=== PATIENT | male | born 1995 | race Caucasian/White ===

== ENCOUNTER 2021-03-05 23:36 | Emergency (ER) | payer SELFPAY ==
[~2021-03-05] VITALS: Ht 170 cm; Wt 57.0 kg
[~2021-03-05 23:36] MED LIST: OMEP20CA18 PO
--- NOTE | 2021-03-06 00:34 | ED EENT ---
History of Present Illness General Chief Complaint: Ear Problems Stated Complaint: FLOOD,LEFT EAR PAIN,TOOTHACHE Nursing Triage Note: PT AMB TO ED BY POV WITH C/O LEFT EAR PAIN THAT RADIATES TO THE JAW THAT BEGAN YESTERDAY AND FLOOD. PT HAS TRIED PUTTING PEROXIDE IN HIS EAR AND IBUPROFEN TO HELP WITH THE PAIN. LAYING DOWN MAKES THE PAIN WORSE. Source: patient Exam Limitations: no limitations History of Present Illness Date Seen by Provider: Mar 06, 2021 Time Seen by Provider: 00:24 Initial Comments Patient is a 25-year-old male who presents to the emergency department today with a chief complaint of left sided dental pain both upper and lower my molars, left ear pain, mild headache. Patient states he has been taking an inxj-yos-vtlrfyt "pain reliever" last dose was about 3 hours prior to arrival. He denies any fevers or chills. No chest pain, cough, shortness of breath. He is not Covid vaccinated. He denies abdominal pain, nausea vomiting or diarrhea. No sick contacts. He is a smoker and is counseled on stopping. He states he tried a little Orajel on the teeth and that seems to help a little bit, the Tylenol does not really make anything much better. All other review of systems reviewed and negative except as stated. Timing/Duration: gradual Location: ear (L), mouth, dental Prearrival Treatment: over the counter meds Modifying Factors: Worse With Lying Down Associated Symptoms: nasal congestion/drainage, tooth pain Allergies and Home Medications Allergies Coded Allergies: No Known Drug Allergies (Unverified , 02/19/15) Patient Home Medication List Home Medication List Reviewed: Yes Omeprazole (Omeprazole) 20 Mg David., 20 MG PO BID Prescribed by: AYAD MARCUM on 02/20/15 0018 Review of Systems Review of Systems Constitutional: see HPI Eyes: No Symptoms Reported Ears: Pain (left ear) Nose: no symptoms reported Mouth: pain (dental pain upper and lower) Throat: no symptoms reported Respiratory: no symptoms reported Cardiovascular: no symptoms reported Gastrointestinal: no symptoms reported Musculoskeletal: no symptoms reported Skin: no symptoms reported Neurological: Headache (mild) All Other Systems Reviewed Negative Unless Noted: Yes Past Rocjkim-Rqxhna-Zxhsfz Hx Patient Social History Tobacco Use?: Yes Tobacco type used: Cigarettes Smoking Status: Current Everyday Smoker Use of E-Cig and/or Vaping dev: No Substance use?: No Alcohol Use?: Yes Alcohol type: Beer Alcohol Frequency: Couple times a week Pt feels they are or have been: No Immunizations Up To Date Influenza Vaccine Up-to-Date: No; Not Current First/Initial COVID19 Vaccinat: N/A Past Medical History Ear Surgery Reproductive Disorders: No Family Medical History Heart Disease Physical Exam Vital Signs Vital Signs - First Documented 03/05/21 23:47 Temp 36.5 Pulse 88 Resp 16 B/P (MAP) 139/88 (105) Pulse Ox 100 O2 Delivery Room Air Height, Weight, BMI Height: 5'6" Weight: 130lbs. oz. 58.688322sb; 19.00 BMI Method:Stated General Appearance: WD/WN, no apparent distress Eyes: bilateral eye normal inspection, bilateral eye PERRL, bilateral eye EOMI Ears: left ear TM red; bilateral ear TM dull, bilateral ear other (Bilateral ear canals have a whitish plaque in the ear canal. He has significant scarring of both TMs. It does appear that he has effusions behind both TMs. The left TM is a little bit more red than the right.) Nose: normal inspection Mouth/Throat: pharynx normal, dental tenderness (Left lower posterior molar has large carious deformity. Slightly tender to percussion. Patient complains of dental pain to the left upper posterior molars however there is no obvious dental caries, no gingival erythema or edema or drainage.) Neck: full range of motion, supple, normal inspection Cardiovascular: regular rate, rhythm Respiratory: lungs clear, normal breath sounds, no respiratory distress, no accessory muscle use Skin: normal color, warm/dry Progress/Results/Core Measures Results/Orders My Orders Orders - DAVID PANCHAL MD Ibuprofen Tablet (Motrin Tablet) (03/06/21 00:45) Vital Signs/I&O 03/05/21 23:47 Temp 36.5 Pulse 88 Resp 16 B/P (MAP) 139/88 (105) Pulse Ox 100 O2 Delivery Room Air Blood Pressure Mean: 105 Departure Impression Primary Impression: Pain, dental Additional Impression: Left otitis media with effusion Disposition: 01 HOME, SELF-CARE Condition: Stable Departure-Patient Inst. Decision time for Depature: 00:49 Ref[facility]: [facility] [place],LOCAL PHYSICIAN (PCP) Primary Care Physician Patient Instructions: Dental Pain (DC), Ear Infection ED Add. Discharge Instructions: Take the antibiotics twice a day for the next 7 days as prescribed. I have sent a prescription for the antibiotics to the [facility]. Use an lqbr-vjq-nofiujf decongestant such as "Mucinex Sinus" or "Sudafed Sinus" to help to relieve the pressure/fluid in your ears. 3 Regular Ibuprofen tablets, which is 600mg, every 6 hours with food as needed for pain. You can "rinse" your ears out with a 1:1 mixture of room temperature water and hydrogen peroxide. Try this a couple of times a week to help remove ear wax build up. Do NOT put Qtips in your ears! If you have worsening pain after being on the antibiotics for 3 days, or fever, or any other emergent concerning symptoms, please either follow up with a primary doctor or come back to the ER for re-evaluation. Scripts Amoxicillin/Potassium Clav (Augmentin 875-125 Tablet) 1 Each Tablet 1 EACH PO BID, #14 TAB 0 Refills Prov: DAVID PANCHAL MD 03/06/21 DAVID PANCHAL MD Mar 06, 2021 00:34
[2021-03-06] MEDS ORDERED: IBUPROFEN 600 MG (MOTRIN) TAB PO ONE (00:45)
[2021-03-06] MEDS ORDERED: AMOX-358 PO (00:49)
[2021-03-06 01:04] VITALS: BP 136/92
== END 2021-03-06 01:00 | disposition home or self-care (01) ==
LOC: EDUNIT# 23:36 → ER 23:41
DX: K08.89 Other specified disorders of teeth and supporting structures (principal); H65.92 Unspecified nonsuppurative otitis media, left ear; F17.210 Nicotine dependence, cigarettes, uncomplicated
CPT/HCPCS: 99283